=== PATIENT | female | born 1980 | race Caucasian/White ===

== ENCOUNTER 2022-01-24 21:39 | Emergency (ER) | payer OTHER, SELFPAY ==
[2022-01-24 21:47] VITALS: BP 142/101; PULSE 101; RESP 20; TEMP 37.1; O2SAT 100
[2022-01-24 22:00] LABS: Add Urine Microscopic? YES; Appearance Urine Slightly Cloudy (Clear); Bilirubin Urine Negative (Negative); Blood Urine 3+ (Negative); Color Urine Other (Yellow); Glucose Urine UA Negative (Negative); Ketones Urine Negative (Negative); Leukocyte Esterase Ur 2+ LEU/UL (Negative); Nitrate Urine Positive (Negative); Protein Urine 3+ mg/dL (Negative)
[2022-01-24 22:06] LABS: Bacteria Urine Trace /hpf; RBC Urine >75 /hpf (0-2); Squamous Epithelial Cell Urine Moderate /hpf (Few); WBC Clumps Urine Present /HPF; WBC Urine >75 /hpf
--- NOTE | 2022-01-24 23:10 | ED.FEMALEGU ---
HPI - Female Genitourinary General Chief complaint: Urogenital-Female Stated complaint: bladder issues Time Seen by Provider: 01/24/22 22:56 Source: patient Mode of arrival: ambulatory History of Present Illness HPI Narrative: 42-year-old female presents today with complaints of dysuria, urinary frequency, and foul-smelling urine that started yesterday. Patient states she has a history of cystitis. Patient denies fever, body aches, chills, nausea, vomiting, or fevers. Denies chance of . Related Data Home Medications Medication Instructions Recorded Confirmed certolizumab pegol 400 mg SUBCUT ONCE 05/14/21 12/17/21 Allergies Allergy/AdvReac Type Severity Reaction Status Date / Time No Known Allergies Allergy Mild Verified 12/17/21 12:54 Review of Systems Review of Systems: CONSTITUTIONAL: Denies fever, chills, or sweats. EYES: Denies visual changes, redness, or discharge. ENT: Denies rhinorrhea, congestion, sore throat, or otalgia. CARDIOVASCULAR: Denies chest pain, palpitations, or edema. RESPIRATORY: Denies cough or dyspnea. GASTROINTESTINAL: Denies abdominal pain, nausea, vomiting, or diarrhea. GENITOURINARY: Dysuria without hematuria. SKIN: Denies rash or itching. MUSCULOSKELETAL: Denies back pain, joint pain, or myalgia. NEUROLOGIC: Denies headache, numbness, dizziness, or weakness. PSYCHIATRIC: Denies anxiety or depression. [facility] Past Medical History Medical History BMI 38.0-38.9,adult Body mass index (BMI) of 40.1-44.9 in adult Family History Family History Grandparent Hypertension Father No problems noted. Mother Heart disease Rheumatoid arthritis Sibling No problems noted. Other Diabetes mellitus Family history of Alzheimer's disease Social History Social History Tobacco type: cigarettes Second hand tobacco smoke exposure: No Smoking end date: 09/13/07 Alcohol intake: current Substance use: current Substance use type: marijuana Other substance usage details: gummies and topical cream. 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 HEAD: Normocephalic, atraumatic. EYES: PERRLA and EOMI. ENT: Nares clear, no rhinorrhea or epistaxis. Mucous membranes moist. Oropharynx without tonsillar hypertrophy exudate or other lesions. Bilateral TMs pearly power nonbulging NECK: Supple. No adenopathy or masses. No carotid bruits or JVD CHEST: Clear to auscultation. No respiratory distress. No wheezes rales or rhonchi HEART: Regular rate and rhythm. No murmur heard. Normal peripheral pulses. ABDOMEN: Soft, nontender, nondistended, normal active bowel sounds. EXTREMITIES: Normal range of motion. No edema. SKIN: Warm, dry, no rash. NEURO: No focal deficits. Alert and oriented x3. PSYCH: Normal mood and affect. Course Vital Signs Vital signs: Vital Signs Temperature 37.1 C 01/24/22 21:47 Pulse Rate 101 H 01/24/22 21:47 Respiratory Rate 20 01/24/22 21:47 Blood Pressure 142/101 H 01/24/22 21:47 Pulse Oximetry 100 01/24/22 21:47 Temperature 37.1 C 01/24/22 21:47 Pulse Rate 101 H 01/24/22 21:47 Respiratory Rate 20 01/24/22 21:47 Blood Pressure 142/101 H 01/24/22 21:47 Pulse Oximetry 100 01/24/22 21:47 MDM - Female Genitourinary MDM Narrative Medical decision making narrative: HPI as noted. Urine positive for nitrates, leukocyte Estrace, WBCs, RBCs, with trace bacteria. Patient denies body aches, fever, chills. UTI unlikely. Patient discharged home with p.o. antibiotics. Differential Diagnosis Differential diagnosis: Likely urinary tract infection and cystitis Medical Records Attestation: Lillie barraza
[2022-01-24] MEDS: CEPHALEXIN 500 MG CAPSULE PO (23:33)
[2022-01-24] MEDS: PHENAZOPYRIDINE HCL 100 MG TABLET 200 MG PO (23:33)
== END 2022-01-24 23:37 | disposition home or self-care (01) ==
PROVIDERS: Emergency Medicine; Emergency Provider Nurse Practitioner Family; PCP Family Medicine
DX: N39.0 Urinary tract infection, site not specified (principal); Z87.891 Personal history of nicotine dependence
CPT/HCPCS: 81001; 81025; 87077; 87086; 87186; 99283; A9270

== ENCOUNTER 2022-06-17 08:04 | Outpatient (CLI) | payer OTHER, SELFPAY ==
--- NOTE | 2022-07-11 23:13 | WPDHOMESLEEP ---
Sleep Study - Home Unattended Date of Study: 06/17/22 Ordering Provider: CRISTY Reyes Interpreting Provider: Tamara Garrido MD Home Sleep Study Type: Apnea Link Air Height: 1.6 m Weight: 96.162 kg Body Mass Index: 37.5 Neck Circumference (inches): 15 [place]: 5 Reason for Sleep Study Chronic fatigue, sleep disturbance Sleep History Lizabeth Mills is a 42-year-old woman who always . She uses an oral appliance for snoring over the last year. She has difficulty falling asleep and she wakes up throughout the night. She does not awaken from sleep feeling short of breath. She rarely awakens at night with heartburn, belching or coughing. She constantly snores and always loud enough that others complain about it. She constantly has trouble sleeping with a cold. She never wakes up gasping for breath at night. She occasionally sweats excessively at night. She does not notice her heart pounding or beating irregularly at night. She occasionally falls asleep during the day but never involuntarily or while driving. She does not have loss of muscle tone with strong emotion. She always has daytime difficulties due to excessive sleepiness. She does not feel paralyzed on waking or falling asleep. She always has vivid dreamlike scenes on waking or falling asleep. She does not feel afraid to go to sleep. She rarely has nightmares. She frequently remembers her dreams. She frequently has racing thoughts. She frequently has feelings of sadness or depression. She constantly has anxiety and constantly has muscular tension. She does not notice parts of her body jerking. She does not kick at night. She does not have crawling or aching feelings in her legs. She does not have any kind of leg pain at night. She rarely has morning jaw pain. She frequently grinds her teeth during sleep. She constantly is bothered by pain during the day. She frequently is awakened by pain at night. She constantly wakes up feeling stiff in the morning with sore achy muscles. She occasionally wakes up with pain in the neck and spine. Normal bedtime is between 8:00 p.m. and 9:00 p.m., taking 1-3 hours to fall asleep. She wake at night, often up to 3 times. She goes to the bathroom and sometimes it takes her a while to return to sleep. It may take her anywhere from 5 minutes to 30 minutes. She wakes the morning between 8:00 a.m. and 10:00 a.m.. Her weekend schedule is similar. She goes to bed between 9:00 p.m. and 10:00 p.m., and wakes between 10:00 a.m. and 11:00 a.m.. She estimates getting anywhere between 6-10 hours of sleep. Sometimes she needs to take naps. She generally denies taking naps in the day. She does not feel refreshed after short nap. She is usually is Drowsy for 2 or 3 hours after waking. Afternoons are when she feels best. She always has memory and concentration problems. She always has problems with her job due to excessive sleepiness. Habits: Never smoked tobacco. Caffeine 1-2 cups a day. Alcohol 1-2 per month. She does indicate she uses recreational drugs. The type is not specified. [facility] Past Medical History Medical History Allergies Anxiety Attention-deficit hyperactivity disorder, unspecified type BMI 38.0-38.9,adult Depression Gastroesophageal reflux disease Heart disease Hypertension Rheumatoid arthritis involving multiple sites with positive rheumatoid factor Surgical History Surgical History S/P appendectomy [place] teeth removed Family History Family History Grandparent Hypertension Father No problems noted. Mother Heart disease Rheumatoid arthritis Sibling No problems noted. Other Diabetes mellitus Family history of Alzheimer's disease Social History Social History (Reviewed 04/24/22 @ 15:14 b
[2022-07-11 23:32] VITALS: BMI 37.5
== END 2022-06-18 13:40 | disposition home or self-care (01) ==
LOC: ANHCSM 08:05
PROVIDERS: PCP Family Medicine; Visit Provider Physician Assistant
DX: G47.33 Obstructive sleep apnea (adult) (pediatric) (principal); G47.10 Hypersomnia, unspecified; Z68.37 Body mass index [BMI] 37.0-37.9, adult
CPT/HCPCS: 95806

== ENCOUNTER → 2022-07-07 11:05 | Outpatient (CLI) | payer OTHER, SELFPAY ==
--- NOTE | ~2022-07-07 | MM_ITS ---
EXAMINATION: MM screening david BI w dillon HISTORY: Baseline screening mammogram TECHNIQUE: Craniocaudal and mediolateral oblique 3-D tomosynthesis images were obtained and synthetic 2-D images were generated. CAD analysis was submitted and interpreted. COMPARISON: None, baseline BREAST PARENCHYMAL COMPOSITION: The breasts are almost entirely fatty. FINDINGS: No suspicious mass, calcification, or architectural distortion are identified in either malathi ast to suggest malignancy. There has been no suspicious interval change. IMPRESSION: 1. No mammographic evidence of malignancy. 2. Recommend routine screening mammography in one year. BI-RADS Category 1: Negative Reviewed, dictated and finalized at location A.
== END ==
PROVIDERS: PCP Family Medicine; Visit Provider Obstetrics & Gynecology
DX: Z12.31 Encounter for screening mammogram for malignant neoplasm of breast (principal)
CPT/HCPCS: 77063; 77067

== ENCOUNTER 2022-09-17 20:55 | Emergency (ER) | payer OTHER, SELFPAY ==
[2022-09-17 20:59] VITALS: BP 136/95; PULSE 100; RESP 20; TEMP 37.2; O2SAT 98
[2022-09-17 23:38] LABS: Basophils Absolute Auto 0.1 K/mm3 (0.0-0.1); Basophils Percent Auto 0.7 % (0.2-1.2); Eosinophils Absolute Auto 0.1 K/mm3 (0-0.3); Eosinophils Percent Auto 0.7 % (0-4.4); Hematocrit 40.8 % (37.0-47.0); Hemoglobin 14.1 g/dL (12.0-15.0); Immature Granulocyte Absolute 0.05 K/mm3 (0.00-0.031); Immature Granulocyte Percent A 0.6 % (0-0.5); Lymphocytes Absolute Auto 1.52 K/mm3 (0.9-3.2); Lymphocytes Percent Auto 16.9 % (18.3-44.2); Mean Corpuscular HGB Conc 34.6 g/dl (32-36); Mean Corpuscular Hemoglobin 30.5 pg (26-34); Mean Corpuscular Volume 88.1 fl (80-100); Mean Platelet Volume 9.7 fl (7.4-10.4); Monocytes Absolute Auto 1.1 K/mm3 (0.1-0.6); Monocytes Percent Auto 11.9 % (2.6-8.5); Neutrophils Absolute Auto 6.2 K/mm3 (1.3-6.7); Neutrophils Percent Auto 69.2 % (45.5-73.1); Platelet Count Result 275 k/mm3 (150-375); Red Blood Count 4.63 M/mm3 (4.2-5.4); Red Cell Distribution Width 13.2 % (11.5-14.5)
[2022-09-18 00:08] LABS: Alanine Aminotransferase 26 U/L (6-35); Albumin Level 4.5 g/dL (3.5-5.1); Alkaline Phosphatase 81 U/L (38-126); Anion Gap 4 mmol/L (8-16); Aspartate Amino Transferase 25 U/L (14-36); Bilirubin,Total 1.2 mg/dL (0.2-1.3); Blood Urea Nitrogen 5 mg/dL (7-17); Calcium 8.9 mg/dL (8.4-10.2); Carbon Dioxide 25 mmol/L (22-30); Chloride 98 mmol/L (98-107); Estimated CRCL calculation 90 ml/min; Estimated Glomerular Filt Rate > 60; Glucose 120 mg/dL (65-110); Lipase 49 U/L (23-300); Potassium 3.6 mmol/L (3.4-5.0); Sodium 127 mmol/L (137-145)
--- NOTE | 2022-09-18 01:44 | PC.NURSE ---
noted patient has had no episodes of vomiting while in the waiting room
[2022-09-18 02:30] LABS: Add Urine Microscopic? YES; Appearance Urine Clear (Clear); Bilirubin Urine Negative (Negative); Blood Urine 2+ (Negative); Color Urine Yellow (Yellow); Glucose Urine UA Negative (Negative); Ketones Urine Negative (Negative); Leukocyte Esterase Ur Trace LEU/UL (Negative); Nitrate Urine Negative (Negative); Protein Urine Trace mg/dL (Negative); Specific Grav Ur <= 1.005 (1.001-1.035); Urobilinogen Urine 0.2 mg/dL (<2.0)
[2022-09-18 02:32] LABS: Mucus Urine Rare /lpf; RBC Urine 0-2 /hpf (0-2); Squamous Epithelial Cell Urine Rare /hpf (Few)
--- NOTE | 2022-09-18 03:54 | ED.NAVMDI ---
HPI - Nausea/Vomiting/Diarrhea General Chief complaint: Nausea/Vomiting/Diarrhea Stated complaint: nausea, vomiting Time Seen by Provider: 09/18/22 03:43 History of Present Illness HPI Narrative: This is a 42-year-old female with past medical history of hypertension, anxiety, recently diagnosed with COVID, presents to the emergency department complaining of nausea and vomiting. Patient states she has had intermittent, nonproductive, nonbloody cough accompanied with right chest wall and back pain. She also complains of intermittent nausea and vomiting but is able to tolerate some foods and fluids. Patient is afraid that she cannot take her medications, including antibiotics for a UTI. She has no other complaints today. Related Data Home Medications Medication Instructions Recorded Confirmed certolizumab pegol 400 mg/2 mL 400 mg subcut ONCE 05/14/21 08/24/22 (200 mg/mL x2) subcutaneous syringe kit (Cimzia) celecoxib 200 mg capsule (Celebrex) 200 mg PO DAILY 03/25/22 08/24/22 copper 380 square mm intrauterine 1 device intrauterine ONCE 03/25/22 08/24/22 device (ParaGard T 380A) vortioxetine 10 mg tablet 20 mg PO DAILY 04/08/22 08/24/22 (Trintellix) Allergies Allergy/AdvReac Type Severity Reaction Status Date / Time No Known Allergies Allergy Mild Verified 08/24/22 11:17 Review of Systems Review of Systems: CONSTITUTIONAL: Fevers and chills denies sweats. EYES: Denies visual changes, redness, or discharge. ENT: Rhinorrhea, congestion, sore throat denies otalgia. CARDIOVASCULAR: Intermittent mild chest pain with cough denies palpitations, or edema. RESPIRATORY: Nonbloody nonproductive cough denies dyspnea. GASTROINTESTINAL: nausea and vomiting, Denies abdominal pain or diarrhea. GENITOURINARY: Denies dysuria or hematuria. SKIN: Denies rash or itching. MUSCULOSKELETAL: Denies back pain, joint pain, or myalgia. NEUROLOGIC: Denies headache, numbness, dizziness, or weakness. PSYCHIATRIC: Denies anxiety or depression. [facility] Past Medical History Medical History Allergies Anxiety Attention-deficit hyperactivity disorder, unspecified type BMI 38.0-38.9,adult Depression Gastroesophageal reflux disease Heart disease Hypertension Rheumatoid arthritis involving multiple sites with positive rheumatoid factor Surgical History Surgical History S/P appendectomy [place] teeth removed Family History Family History Grandparent Hypertension Mother Heart disease Rheumatoid arthritis Sibling No problems noted. Other Diabetes mellitus Family history of Alzheimer's disease Social History Social History Smoking status: Former smoker Tobacco type: cigarettes Second hand tobacco smoke exposure: No Smoking end date: 09/13/07 Alcohol intake: current Substance use: current Substance use type: marijuana Other substance usage details: gummies and topical cream. 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 EYES: PERRLA and EOMI. ENT: Nares clear, no rhinorrhea or epistaxis. Mucous membranes moist. Oropharynx without tonsillar hypertrophy exudate or other lesions. NECK: Supple. No adenopathy or masses. No carotid bruits or JVD CHEST: Clear to auscultation. No respirato
[2022-09-18] MEDS: ACETAMINOPHEN 500 MG TABLET 1000 MG PO (03:58)
[2022-09-18] MEDS: ONDANSETRON HCL ODT 4 MG TABLET PO (03:58)
[2022-09-18 04:35] VITALS: BP 135/72; PULSE 83; RESP 18; O2SAT 97
== END 2022-09-18 04:50 | disposition home or self-care (01) ==
PROVIDERS: Emergency Medicine; Emergency Provider Preventive Medicine Aerospace Medicine; PCP Family Medicine
DX: U07.1 COVID-19 (principal); R11.2 Nausea with vomiting, unspecified; I11.9 Hypertensive heart disease without heart failure; M05.79 Rheumatoid arthritis with rheumatoid factor of multiple sites without organ or systems involvement; K21.9 Gastro-esophageal reflux disease without esophagitis; F41.9 Anxiety disorder, unspecified; F32.A Depression, unspecified; Z87.891 Personal history of nicotine dependence
CPT/HCPCS: 36415; 80053; 81001; 81025; 83690; 85025; 87086; 99283; A9270

== ENCOUNTER → 2023-02-25 10:37 | Outpatient (CLI) | payer OTHER, SELFPAY ==
--- NOTE | ~2023-02-25 | US_ITS ---
EXAMINATION: US pelvic complete w TV DATE: 02/25/2023 11:17 INDICATION: Irregular menstruation Comparison:Menorrhagia TECHNIQUE: Multiple transabdominal and endovaginal sonographic images of the pelvis performed. FINDINGS: The uterus measures 8.8 x 4.1 x 4.9 cm. IUD is present in the endometrium. The endometrial complex measures 7 mm. The right ovary measures 2.5 x 1.8 x 1.5 cm and the left ovary measures 3.6 x 2.7 x 3.3 cm. There is a 2.2 cm left ovarian cyst. There are small follicles in each ovary. Normal doppler signal in both ov suly. There is no free fluid in the pelvis. There are no abnormal masses seen on either side. IMPRESSION: 1. Left ovarian cyst measuring 2.2 cm. 2: IUD in expected position in the endometrium. Reviewed, dictated and finalized at location L.
== END ==
PROVIDERS: PCP Obstetrics & Gynecology; Visit Provider Obstetrics & Gynecology
DX: N83.202 Unspecified ovarian cyst, left side (principal); N92.6 Irregular menstruation, unspecified
CPT/HCPCS: 76830; 76856

== ENCOUNTER 2023-05-20 13:03 | Outpatient (CLI) | payer OTHER, SELFPAY ==
[2023-05-20 14:06] LABS: CRP 0.6 mg/dL (<1.0)
[2023-05-20 15:25] LABS: Erythrocyte Sedimentation Rate 26 mm/hr (0-20)
[2023-05-24 15:39] LABS: Quantiferon TB Plus, 1T NEGATIVE (NEGATIVE); TB1-NIL 0.04 IU/mL; TB2-NIL 0.02 IU/mL
== END 2023-05-20 13:04 | disposition home or self-care (01) ==
PROVIDERS: PCP Family Medicine
DX: D89.9 Disorder involving the immune mechanism, unspecified (principal); M05.79 Rheumatoid arthritis with rheumatoid factor of multiple sites without organ or systems involvement; Z79.899 Other long term (current) drug therapy
CPT/HCPCS: 36415; 85652; 86140; 86480

== ENCOUNTER 2023-05-28 12:05 | Outpatient (CLI) | payer OTHER, SELFPAY ==
--- NOTE | 2023-05-28 12:30 | ECG_ITS ---
Measurements Intervals [place] Rate: 72 P: 26 FL: 129 QRS: 24 QRSD: 93 T: 30 QT: 388 QTc: 425 Interpretive Statements SINUS RHYTHM BASELINE ARTIFACT- II, III, AVF, V3 NORMAL ECG COMPARED TO ECG 11/09/2018 06:57:58 SINUS RHYTHM NOW PRESENT Electronically Signed On 05-28-2023 20:33:28 CDT by Rickey Suárez D.O.
== END 2023-05-28 12:06 | disposition home or self-care (01) ==
LOC: ANHSURGERY 12:16
PROVIDERS: PCP Family Medicine; Visit Provider Obstetrics & Gynecology
DX: Z01.818 Encounter for other preprocedural examination (principal); N92.0 Excessive and frequent menstruation with regular cycle; I10 Essential (primary) hypertension
CPT/HCPCS: 36415; 86850; 86880; 86900; 86901; 86902; 86922; 93005

== ENCOUNTER 2023-06-04 02:20 | Day surgery (SDC) | payer OTHER, SELFPAY ==
[2023-05-27 11:53] VITALS: BMI 40.7
--- NOTE | 2023-05-27 12:04 | PC.NURSE ---
Report to the Outpatient Waiting Room, entrance under the green pavilion located off [facility], at time 8:30 on date 06/04/23. Planned Procedure Time: 10:30. Time changes happen often and if your time is changed the preop area will call you the afternoon before. - You and your visitor will be asked to self-screen and do not enter if you have any COVID symptoms. - A mask is optional within the hospital at this time. Patients may have clear liquids (water, carbonated beverages, clear teas, apple juice) until 3 hours prior to surgery (7:30) with a maximum of 20 ounces. - No food from midnight until time of surgery Take the following medications with a SIP of water the morning of surgery: BUPROPION, HYDROXYZINE IF NEEDED DO NOT STOP ANY OF YOUR OTHER PRESCRIPTION MEDICATIONS PRIOR TO SURGERY ?EXCEPT THE FOLLOWING Medications to discontinue per physician: VITAMINS/SUPPLEMENTS Date to take last dose: 05/31/23 Please no make-up, nail mont[place], hairspray, perfume, deodorant, or body powder the day of surgery. No jewelry (including any body piercings) or valuables the day of surgery, leave them at home. Please take a shower or bath the night before, or the morning of, surgery with an antibacterial soap. Wear comfortable, loose fitting clothing. - Jewelry must be removed prior to entering the operating room. Rings and piercings that are not removed may be cut off. - The hospital will not accept responsibility for valuables. - Please leave all valuables, including medications, at home the day of surgery. If you are going home after surgery, a licensed assembly line driver must drive you home. - NO public transportation without another adult if you receive anesthesia. - We recommend that an adult stay with you for 24 hours following discharge. - We also recommend that you do not drive, make important decision, drink alcoholic beverages, or take any drugs that were not prescribed by your health care provider for at least 24 hours after your discharge time. Follow any additional instructions given to you from your surgeon. If you or anyone in your household have experienced Covid symptoms in the past week, please notify your surgeon or the nurse liaison at the phone number below for possible testing. Telephone instructions given to PT - CAROL VELA and asked if any additional questions and then verbalized understanding. Patient advised to call surgeon office or pre surgery nurse liaison [phone] if any additional questions.
--- NOTE | 2023-06-03 20:07 | PM.IMHP ---
H&P: HPI History of Present Illness Date/Time: 06/03/23 20:07 Chief Complaint: Menorrhagia and dysmenorrhea Narrative: She is a 43y/o P1 with a long history of menorrhagia and cramping. She has tried IUD in the past and has declined to use it again. She is currently on progesterone only oral contraception option and she continues to get heavy periods that are prolonged. She has had endometrial biopsy that has been negative for malignancy. She request definitive treatment with hysterectomy. She declines endometrial ablation or trial of other hormonal options. Review of Systems Review of Systems: All systems reviewed & are unremarkable except as noted in HPI and below Cardiovascular: Cardiovascular: Reports no additional cardiovascular complaints, Denies chest pain and Denies dyspnea Respiratory: Respiratory: Reports no additional respiratory complaints and Denies dyspnea Gastrointestinal: Gastrointestinal: Reports abdominal pain, Denies change in bowel habits, Denies diarrhea, Denies nausea and Denies vomiting Genitourinary: Genitourinary: Reports pelvic pain Musculoskeletal: Musculoskeletal: Reports back pain Integumentary/Breasts: Skin/Breast: Reports system reviewed and no additional complaints, except as docu Neurologic: Reports system reviewed and no additional complaints, except as documented [facility] Past Medical History Medical History Allergies Anxiety Attention-deficit hyperactivity disorder, unspecified type BMI 38.0-38.9,adult Depression Gastroesophageal reflux disease Heart disease Hypertension Rheumatoid arthritis involving multiple sites with positive rheumatoid factor Surgical History Surgical History S/P appendectomy [place] teeth removed Family History Family History Grandparent Hypertension Mother Heart disease Rheumatoid arthritis Sibling No problems noted. Father No problems noted. Other No problems noted. Other Diabetes mellitus Family history of Alzheimer's disease Social History Social History Years smoked: 10 Smoking status: Former smoker Tobacco type: cigarettes Second hand tobacco smoke exposure: No Smoking end date: 09/13/06 Alcohol intake: current Drinks per week: 4 Substance use: current Substance use type: marijuana Other substance usage details: gummies and topical cream. 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 Gender identity (if verbalized by the patient): Female Sexual Orientation (if Verbalized by the Patient): Straight or Heterosexual Spiritual care concerns: No Meds Home Medications and Allergies Home Medications Medication Instructions Recorded Confirmed Type certolizumab pegol 400 mg/2 mL 400 mg subcut MONTHLY 05/14/21 06/01/23 History (200 mg/mL x2) subcutaneous syringe kit (Cimzia) celecoxib 200 mg capsule (Celebrex) 200 mg PO DAILY 03/25/22 06/01/23 History copper 380 square mm intrauterine 1 device intrauterine ONCE 03/25/22 06/01/23 History device (ParaGard T 380A) ondansetron 4 mg disintegrating 4 mg PO Q8H PRN nausea and 09/18/22 06/01/23 Rx tablet vomiting #10 tabs hyaluronate sodium, stabilized 60 3 ml intra-articular [id number] 01/04/23 06/01/23 History mg/3 mL intra-articular syringe (Durolane) benazepril 10
[2023-06-04] VITALS (11 sets, daily range): BP systolic 110–148; BP diastolic 61–90; PULSE 64–106; RESP 14–20; TEMP 36.1–36.8; O2SAT 95–100
--- NOTE | 2023-06-04 09:26 | WPDHPUPDATE1 ---
History and Physical Update Update Date/Time: 06/04/23 09:26 History and Physical has been reviewed, including an updated exam of the patient. There are NO changes in the patient's condition. Risks, benefits, and alternatives have been discussed and questions answered. Patient agrees to proceed with procedure.
--- NOTE | 2023-06-04 09:29 | WPDANESEPPF ---
Anes - Initial Pre Proc Eval Procedure: Operation Date: 06/04/23 10:30 Proposed Procedures p Robotic Laparoscopic Vaginal Hysterectomy with Bilateral Salpingectomy - Dk Castle MD Date/Time: 06/04/23 09:29 Surgeon: Dk Castle MD Pre Op Diagnosis: Irg Bleed, Eces Menstruation, Desire Steril Patient Data Age: 43 Gender: F Height: 1.6 m Weight: 104.35 kg Allergies Allergy/AdvReac Type Severity Reaction Status Date / Time No Known Allergies Allergy Mild Verified 06/01/23 11:06 Home Medications Medication Instructions Recorded Confirmed Type certolizumab pegol 400 mg/2 mL 400 mg subcut MONTHLY 05/14/21 06/01/23 History (200 mg/mL x2) subcutaneous syringe kit (Cimzia) celecoxib 200 mg capsule (Celebrex) 200 mg PO DAILY 03/25/22 06/01/23 History copper 380 square mm intrauterine 1 device intrauterine ONCE 03/25/22 06/01/23 History device (ParaGard T 380A) ondansetron 4 mg disintegrating 4 mg PO Q8H PRN nausea and 09/18/22 06/01/23 Rx tablet vomiting #10 tabs hyaluronate sodium, stabilized 60 3 ml intra-articular [id number] 01/04/23 06/01/23 History mg/3 mL intra-articular syringe (Durolane) benazepril 10 mg tablet 10 mg PO DAILY #30 tabs 02/04/23 06/01/23 Rx norethindrone (contraceptive) 0.35 0.35 mg PO DAILY #84 tabs 04/14/23 06/01/23 Rx mg tablet (Millicent) bupropion HCl 150 mg 24 hr tablet, 300 mg PO QAM #60 tabs 05/11/23 06/01/23 Rx extended release (Wellbutrin XL) hydroxyzine HCl 25 mg tablet 25 mg PO TID PRN anxiety #20 tabs 05/11/23 06/01/23 Rx rizatriptan 10 mg tablet See Rx Instructions .Route 05/11/23 06/01/23 Rx .COMPLEX #30 tabs coQ10 (ubiquinol) 200 mg capsule 200 mg PO DAILY 05/27/23 06/01/23 History turmeric 400 mg capsule 400 mg PO DAILY 05/27/23 06/01/23 History vortioxetine 10 mg tablet 20 mg PO HS #90 tabs 06/02/23 Rx (Trintellix) Laboratory Tests 05/28/23 12:37 Enhanced Crossmatch See Detail Patient hx anesthesia problems: none Family hx anesthesia problems: none Results Review: All pre-operative results and documents have been reviewed as part of the pre-operative evaluation. [facility] Past Medical History Medical History Allergies Anxiety Attention-deficit hyperactivity disorder, unspecified type BMI 38.0-38.9,adult Depression Gastroesophageal reflux disease Heart disease Hypertension Rheumatoid arthritis involving multiple sites with positive rheumatoid factor Surgical History Surgical History S/P appendectomy [place] teeth removed Family History Family History Grandparent Hypertension Mother Heart disease Rheumatoid arthritis Sibling No problems noted. Father No problems noted. Other No problems noted. Other Diabetes mellitus Family history of Alzheimer's disease Social History Social History Years smoked: 10 Smoking status: Former smoker Tobacco type: cigarettes Second hand tobacco smoke exposure: No Smoking end date: 09/13/06 Alcohol intake: current Drinks per week: 4 Substance use: current Substance use type: marijuana Other substance usage details: gummies and topical cream. 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
[2023-06-04] MEDS: LACTATED RINGERS 1,000 ML 30 ML IV CONT ×2 (09:35→11:54)
[2023-06-04] MEDS: ACETAMINOPHEN 500 MG TABLET 1000 MG PO (09:40)
[2023-06-04] MEDS: KETOROLAC 15 MG/ML VIAL (*BKC) IV PUSH (09:40)
[2023-06-04] MEDS: MIDAZOLAM HCL (*CRX) 2 MG/2 ML VIAL IV PUSH (09:40)
[2023-06-04] MEDS: ceFAZolin 2 GM/D5W 50 ML 2 GM/50 ML BAG IVPB (09:46)
[2023-06-04] MEDS: BUPivacaine HCL 0.5% 10 ML AMP 20 ML INFILTRATE (10:34)
--- NOTE | 2023-06-04 11:40 | P.OPB_ITS ---
Procedure Note - Brief Procedure Note - Brief Date of procedure: 06/04/23 Irg Bleed, Eces Menstruation, Desire Steril Post-op diagnosis: Same Procedure performed: 1.laparoscopic robotic assisted total vaginal hysterectomy with bilateral tanner pingectomy 2. lysis of adhesions Surgeon: Dk Castle MD Coal Gasification Technician: Yves Anesthesia: GETA Findings: Normal size uterus, adhesions of omental tissue to right lower abdomen, adhesions of ovary to distal colon, adhesions of colon to left side wall. Estimated blood loss (mL): 50 Drains: No Packing: No Pathology: Yes (uterus with cervix fallopian tubes bilateral) Complications: No immediate complications Condition: Stable Disposition: PACU
--- NOTE | 2023-06-04 11:53 | W.PM.PROC2 ---
Procedure Note - Detailed Date of Procedure 06/04/23 Pre-op Diagnosis Menorrhagia Post-op Diagnosis Same Procedure Performed 1. Laparoscopic robotic assisted total vaginal hysterectomy with bilateral salpingectomy 2. Lysis of adhesions 3. IUD removal Surgeon Dk Castle MD Anesthesia General Indications Patient with long history of menorrhagia. Desires definitive treatment with hysterectomy. Findings Normal appearing uterus. Both fallopian tubes bilateral. Normal ovaries bilateral. There were mild adhesions of the left ovary to the posterior cul-de-sac and to the distal colon. Mild adhesions of the left colon to the left pelvic lower abdominal sidewall. Adhesions of the omental tissue to the right lower abdominal wall. The adhesions were released to better mobilize the tissue and visualization. Description of Procedure After informed consent was obtained she was taken to the operating room and general endotracheal anesthesia was administered. She was placed in low lithotomy position. An exam under anesthesia was performed. Uterus palpated normal size and no adnexal masses palpated. She was and prepped and draped in sterile fashion. Cadet catheter placed in bladder. Attention was turned to the vagina speculum was inserted. Single-tooth tenaculum placed on anterior lip of the cervix the uterus sounded to 7 cm. The cervix was dilated to a 8 [place] dilator. A size 6 uterine manipulator was inserted and secured. A size 3.0 colp cup was secured in the vagina. Then attention was turned to the abdomen with new sterile gloves. .25% marcaine injected subcutaneously. An incision was made horizontal 2 cm above the umbilicus. A Veress needle was inserted. Confirmation into the abdomen obtained with normal peritoneal pressures. A Pneumoperitoneum of 15 mm per mercury was obtained. The patient was placed in Trendelenburg position. 8 mm robotic port was inserted under laparoscopic visualization. Attention was turned to the left side, Marcaine was injected subcutaneously and a small incision was made approximately 10 cm lateral to the supraumbilical port. A size 8mm robotic port was inserted under laparoscopic visualization into the abdomen on the left side. Attention was then turned to the right side of the abdomen and approximately 10 cm lateral to the supraumbilical port Marcaine was injected subcutaneously and an incision was made and an 8 mm robotic port was inserted under laparoscopic visualization. Superior and medial to this Marcaine was injected an incision was made and the assistant project manager port was inserted. Attention was turned to a large area of omental tissue that was adhesed to the right lower abdomen. This tissue was lysed and freed up from the abdominal wall. Attention was turned to the right round ligament which was ligated with the vessel sealer. The anterior leaf of the broad ligament on the right side was dissected anteriorly. The right side of the bladder was dissected from the lower uterine segment and upper cervix. The right fallopian tube was ligated with the vessel sealer from the mesial salpinx. The right ovarian ligament was ligated with the vessel sealer. The a posterior leaf of the broad ligament was further dissected. The uterine vessels on the right were skeletonized. The ascending uterine vessels on the right were cauterized. The uterine vessels were ligated. Attention was turned to the left round ligament which was ligated and the anterior leaf of the broad ligament was dissected anteriorly. The rest of the vesicouterine peritoneum was dissected off of the uterus. Once the bladder was dissected below the colp cup then attention was turned to the left fallopian tube which there was some adhesions of the left fallopian tube to the distal colon these adhesions were mild they were lysed also adhesions of the ovary in the cul-de-sac to the distal colon which were mild were also lysed to free up the ovary and fallopian tube t
[2023-06-04] MEDS: fentaNYL CITRATE INJ (*CRX) 100 MCG/2 ML VIAL 25 MCG IV PUSH ×8 (12:08→12:51)
[2023-06-04] MEDS: diphenhydrAMINE HCl INJ 50 MG/ML VIAL 25 MG IV PUSH (12:23)
[2023-06-04] MEDS: HYDROmorphone HCL INJ (*CRX) 1 MG/ML SYR 0.5 MG IV PUSH ×2 (12:58→13:04)
[2023-06-04] MEDS: DEXTROSE 5%/0.45% SOD CHL 1,000 ML 125 ML IV CONT (13:54)
[2023-06-04] MEDS: KETOROLAC 30 MG/ML VIAL (*BKC) IV PUSH (13:54)
[2023-06-04] MEDS: HYDROcodone/acetaminophen (*CRX) 10-325 MG TABLET 1 TAB PO ×2 (16:50→19:58)
[2023-06-04] MEDS: SIMETHICONE 80 MG TAB.CHEW PO ×2 (16:51→19:58)
[2023-06-04] MEDS: ARTIFICIAL TEARS OPHTH SOLN 15 ML BOTTLE 1 DROP EACH EYE (17:30)
[2023-06-05] MEDS: HYDROcodone/acetaminophen (*CRX) 10-325 MG TABLET 1 TAB PO ×3 (01:01→08:34)
[2023-06-05] MEDS: IBUPROFEN 600 MG TABLET PO ×2 (01:02→08:34)
--- NOTE | 2023-06-05 07:07 | PM.GYNPNOP ---
COMMISSIONED SALES ASSOCIATE - A/P Assessment and plan (1) Status post hysterectomy: Code(s): Z90.710 - Acquired absence of both cervix and uterus Status: Acute Assessment and Plan: Doing well. Discussed her surgery yesterday. Discharge home. Discharge precautions discussed. Postoperative Procedures: Procedures Operation Date: 06/04/23 10:30 Actual Procedure Side Surgeon p Robotic Laparoscopic Vaginal Hysterectomy with Bilateral Salpingectomy Bilateral Dk Castle MD Time Spent With Patient Time: Total time spent is greater than 50% in coordination of care (as documented) at patient's floor/unit and/or counseling patient: Time with patient: less than 15 minutes COMMISSIONED SALES ASSOCIATE- PN:Subj Post-Op Subjective Date/time seen: 06/05/23 07:07 Interval history: She has adequate pain control. She is ambulating. Tolerating regular food. Positive flatus. Subjective: patient has no complaints, pain is well controlled and patient is tolerating oral intake Exam Const: General: comfortable Chest: Chest palpation & inspection: normal inspection of the chest Resp: Effort & Inspection: normal respiratory effort Auscultation: clear to auscultation bilaterally Cardio: Rate: regular rate Rhythm: regular rhythm GI: Inspection: normal to inspection Other: nontender incisions healing well, non distended, BS present throughout Extrem: General: normal to inspection and no calf tenderness COMMISSIONED SALES ASSOCIATE - PN: Obj Data Vital Signs Vital Signs: Vital Signs - 24 hr 06/04/23 08:45 06/04/23 11:54 06/04/23 12:35 Temperature 97.0 F L 97.0 F L Pulse Rate 83 106 H 85 Respiratory Rate 16 14 18 Blood Pressure 123/71 110/61 112/73 Pulse Oximetry 98 98 100 Oxygen Delivery Room Air Simple Face Mask Room Air Oxygen Flow Rate 10 06/04/23 12:50 06/04/23 13:05 06/04/23 13:15 Temperature Pulse Rate 83 80 85 Respiratory Rate 18 20 16 Blood Pressure 118/85 115/80 121/70 Pulse Oximetry 96 98 96 Oxygen Delivery Room Air Room Air Room Air Oxygen Flow Rate 06/04/23 12:05 06/04/23 12:20 06/04/23 13:30 Temperature 98.2 F Pulse Rate 93 85 64 Respiratory Rate 18 18 16 Blood Pressure 110/64 114/80 116/66 Pulse Oximetry 98 100 95 Oxygen Delivery Simple Face Mask Simple Face Mask Oxygen Flow Rate 10 10 06/04/23 13:30 06/04/23 16:45 06/04/23 20:00 Temperature 98.1 F 98.3 F Pulse Rate 85 67 64 Respiratory Rate 16 18 18 Blood Pressure 126/80 148/90 H Pulse Oximetry 96 98 Oxygen Delivery Room Air Oxygen Flow Rate Intake/Output Intake/Output: Intake & Output 06/02/23 06/03/23 06/04/23 06/05/23 23:59 23:59 23:59 23:59 Intake Total 1850 Output Total 400 Balance 1450 Meds/Results Medications: Active Medications Generic Name Dose Route Start Last Admin Trade Name Freq PRN Reason Stop Dose Admin Hydrocodone Bitart/Acetaminophen 1 tab 06/04/23 11:32 Hydrocodone/Acetaminophen (*Crx) 5-325 Mg Tablet PO Q3H PRN Pain Rated 5 or Less Hydrocodone Bitart/Acetaminophen 1 tab 06/04/23 11:32 06/05/23 04:45 Hydrocodone/Acetaminophen (*Crx) 10-325 Mg Tablet PO 1 tab Q3H PRN Administration Pain Rated 6 or Greater Artificial Tears 1 drop 06/04/23 17:00 06/04/23 17:30 Artificial Tears Ophth Soln 15 Ml Bottle EACH EYE 1 drop QID PRN Administration Dry Eye(s) Ibuprofen 600 mg 06/04/23 11:32 06/05/23 01:02 Ibuprofen 600 Mg Tablet PO 600 mg Q6H PRN Administration Cramping Ketorolac Tromethamine 30 mg 06/04/23 11:32 06/04/23 13:54 Ketorolac 30 Mg/Ml Vial (*Bkc) IV PUSH 06/09/23 11:31 30 mg Q6H PRN Administration Pain Rated 4-6 Morphine Sulfate 4 mg 06/04/23 11:33 Morphine Sulfate (*Crx) 4 Mg/Ml Inj IV PUSH Q4H PRN Severe breakthrough pain Naloxone HCl 0.1 mg 06/04/23 11:32 Naloxone Hcl 0.4 Mg/Ml Vial IV PUSH Q2M PRN Respiratory rate less than 10 Ondansetron HCl 4 mg 06/04/23 11:32 Ondansetron
[2023-06-05 08:00] VITALS: BP 130/82; PULSE 75; RESP 18; TEMP 36.4; O2SAT 100
[2023-06-05] MEDS: SENNA/DOCUSATE SODIUM TABLET 2 TAB PO (08:34)
== END 2023-06-05 11:24 | disposition home or self-care (01) ==
LOC: ANHSURGERY 07:56 → ANHOB2 13:21
PROVIDERS: PCP Family Medicine; Visit Provider Obstetrics & Gynecology
PROC: (CPT 58552; principal; 2023-06-04 10:30)
DX: D25.1 Intramural leiomyoma of uterus (principal); N73.6 Female pelvic peritoneal adhesions (postinfective); N92.0 Excessive and frequent menstruation with regular cycle; I11.9 Hypertensive heart disease without heart failure; F41.9 Anxiety disorder, unspecified; F90.9 Attention-deficit hyperactivity disorder, unspecified type; F32.A Depression, unspecified; K21.9 Gastro-esophageal reflux disease without esophagitis; Z87.891 Personal history of nicotine dependence; Z79.1 Long term (current) use of non-steroidal anti-inflammatories (NSAID); F12.90 Cannabis use, unspecified, uncomplicated; E66.01 Morbid (severe) obesity due to excess calories; Z68.41 Body mass index [BMI] 40.0-44.9, adult
CPT/HCPCS: 58552; S2900; 36415; 80053; 85025; 88307; 99199; 99283; A9270; J0690; J1100; J1170; J1200; J1885; J1940; J2250; J2405; J2704; J3010; J7030; J7120

== ENCOUNTER 2023-06-05 20:14 | Emergency (ER) | payer OTHER, SELFPAY ==
[2023-06-05 20:20] VITALS: BP 160/89; PULSE 93; RESP 19; TEMP 37.1; O2SAT 98
--- NOTE | 2023-06-05 21:26 | ED.GENADULT ---
HPI - General Adult General Chief complaint: Unspecified Stated complaint: Lap hysto incision opened Time Seen by Provider: 06/05/23 20:36 Source: patient Mode of arrival: ambulatory Limitations: no limitations History of Present Illness HPI narrative: This is a 43 year old female that presents to the ER for pain to incision. Reports she had a laparoscopic hysterectomy yesterday. Today after using the restroom she started to have increasing pain to one of her incisions which concerned her and prompted her to be seen. Reports she feels like the area is red. Denies fever or drainage. Related Data Home Medications Medication Instructions Recorded Confirmed certolizumab pegol 400 mg/2 mL 400 mg subcut MONTHLY 05/14/21 06/01/23 (200 mg/mL x2) subcutaneous syringe kit (Cimzia) celecoxib 200 mg capsule (Celebrex) 200 mg PO DAILY 03/25/22 06/01/23 copper 380 square mm intrauterine 1 device intrauterine ONCE 03/25/22 06/01/23 device (ParaGard T 380A) hyaluronate sodium, stabilized 60 3 ml intra-articular [id number] 01/04/23 06/01/23 mg/3 mL intra-articular syringe (Durolane) coQ10 (ubiquinol) 200 mg capsule 200 mg PO DAILY 05/27/23 06/01/23 turmeric 400 mg capsule 400 mg PO DAILY 05/27/23 06/01/23 Allergies Allergy/AdvReac Type Severity Reaction Status Date / Time No Known Allergies Allergy Mild Verified 06/05/23 20:25 Review of Systems Review of Systems: CONSTITUTIONAL: Denies fever GASTROINTESTINAL: Reports abdominal pain. Denies nausea, vomiting GENITOURINARY: Denies dysuria All systems reviewed & are unremarkable except as noted in HPI and below [facility] Past Medical History Medical History Allergies Anxiety Attention-deficit hyperactivity disorder, unspecified type BMI 38.0-38.9,adult Depression Gastroesophageal reflux disease Heart disease Hypertension Rheumatoid arthritis involving multiple sites with positive rheumatoid factor Surgical History Surgical History S/P appendectomy [place] teeth removed Family History Family History Grandparent Hypertension Mother Heart disease Rheumatoid arthritis Sibling No problems noted. Father No problems noted. Other No problems noted. Other Diabetes mellitus Family history of Alzheimer's disease Social History Social History Years smoked: 10 Smoking status: Former smoker Tobacco type: cigarettes Second hand tobacco smoke exposure: No Smoking end date: 09/13/06 Alcohol intake: current Drinks per week: 4 Substance use: current Substance use type: marijuana Other substance usage details: gummies and topical cream. 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 HEAD: Normocephalic, atraumatic. EYES: EOMI. CHEST: Clear to auscultation. No respiratory distress. No wheezes rales or rhonchi HEART: Regular rate and rhythm. No murmur heard. Normal peripheral pulses. ABDOMEN: Soft, nondistended, normal active bowel sounds. Mild tenderness to palpation throughout the abdomen, without guarding. Mild bruising jonathan
[2023-06-05] MEDS: HYDROcodone/acetaminophen (*CRX) 5-325 MG TABLET 1 TAB PO (21:37)
[2023-06-05 21:51] LABS: Basophils Absolute Auto 0.1 K/mm3 (0.0-0.1); Basophils Percent Auto 1.2 % (0.2-1.2); Eosinophils Absolute Auto 0.1 K/mm3 (0-0.3); Eosinophils Percent Auto 1.5 % (0-4.4); Hematocrit 35.5 % (37.0-47.0); Immature Granulocyte Absolute 0.06 K/mm3 (0.00-0.031); Immature Granulocyte Percent A 0.6 % (0-0.5); Lymphocytes Absolute Auto 2.56 K/mm3 (0.9-3.2); Mean Corpuscular HGB Conc 33.8 g/dl (32-36); Mean Corpuscular Hemoglobin 31.7 pg (26-34); Mean Corpuscular Volume 93.7 fl (80-100); Mean Platelet Volume 9.4 fl (7.4-10.4); Monocytes Absolute Auto 1.1 K/mm3 (0.1-0.6); Monocytes Percent Auto 11.6 % (2.6-8.5); Neutrophils Absolute Auto 5.5 K/mm3 (1.3-6.7); Neutrophils Percent Auto 58.1 % (45.5-73.1); Platelet Count Result 242 k/mm3 (150-375); Red Blood Count 3.79 M/mm3 (4.2-5.4); Red Cell Distribution Width 13.6 % (11.5-14.5); White Blood Count 9.5 K/mm3 (4.5-10.0)
[2023-06-05 22:02] LABS: Alanine Aminotransferase 28 U/L (6-35); Albumin Level 4.3 g/dL (3.5-5.1); Alkaline Phosphatase 61 U/L (38-126); Anion Gap 9 mmol/L (8-16); Aspartate Amino Transferase 32 U/L (14-36); Bilirubin,Total 0.8 mg/dL (0.2-1.3); Blood Urea Nitrogen 12 mg/dL (7-17); Calcium 8.4 mg/dL (8.4-10.2); Carbon Dioxide 23 mmol/L (22-30); Chloride 104 mmol/L (98-107); Estimated CRCL calculation 81 ml/min; Estimated Glomerular Filt Rate > 60; Glucose 108 mg/dL (65-110); Potassium 3.6 mmol/L (3.4-5.0); Sodium 136 mmol/L (137-145)
== END 2023-06-05 22:47 | disposition home or self-care (01) ==
PROVIDERS: Emergency Provider Physician Assistant; PCP Family Medicine
DX: G89.18 Other acute postprocedural pain (principal); I11.9 Hypertensive heart disease without heart failure; M05.9 Rheumatoid arthritis with rheumatoid factor, unspecified; K21.9 Gastro-esophageal reflux disease without esophagitis; Z87.891 Personal history of nicotine dependence; Z90.710 Acquired absence of both cervix and uterus
CPT/HCPCS: 36415; 80053; 85025; 99283; A9270

== ENCOUNTER 2023-11-09 10:02 | Outpatient (CLI) | payer OTHER, SELFPAY ==
[2023-11-09 11:11] LABS: CRP 0.6 mg/dL (<1.0)
[2023-11-09 11:17] LABS: Erythrocyte Sedimentation Rate 41 mm/hr (0-20)
[2023-11-11 13:48] LABS: NIL 0.14 IU/mL; Quantiferon TB Plus, 1T NEGATIVE (NEGATIVE); TB1-NIL 0.03 IU/mL; TB2-NIL 0.04 IU/mL
== END 2023-11-09 10:03 | disposition home or self-care (01) ==
PROVIDERS: PCP Family Medicine
DX: M05.79 Rheumatoid arthritis with rheumatoid factor of multiple sites without organ or systems involvement (principal); Z79.899 Other long term (current) drug therapy
CPT/HCPCS: 36415; 85652; 86140; 86480